=== PATIENT | female | born 1925 | race Caucasian/White ===

== ENCOUNTER → 2016-08-29 | Outpatient (CLI) | payer MEDICARE, OTHER ==
[~2016-08-29] MED LIST: ASPI-983 PO; CLOP75TA28 PO; GLUC1TAB20 PO; LEVO125T6 PO; LOSA100T28 PO; MELO15TA39 PO; METF1000 PO; METO-333 PO; POLY17PO6 PO; PRAV40TA2 PO; SPIR25TA3 PO; SULF1TAB35 PO
--- NOTE | 2016-08-29 17:41 | ECHOCARDIOGRAPHY REPORT ---
DATE OF SERVICE: 08/29/2016 REFERRING PHYSICIAN: Camila Amaya MD MEASUREMENT: LVID end diastolic 4.6, IVS thickness 1.0, LVPW thickness 1.0, left atrial diameter, 2.6 ejection fraction 40%. FINDINGS: 1. Technical quality is good. 2. The left ventricle is normal in size with mild left ventricular hypertrophy, mild to moderate hypokinesia involving the anterior wall and anterior septum. Overall, systolic function is improved compared to the study of 10/2015. Estimated ejection fraction 35% to 40%. 3. The left atrium is normal in size. No clot or thrombus were seen within the left atrium. 4. The right atrium and right ventricle are normal in size. No clot or thrombus were seen within the right side. 5. Mitral valve is heavily calcified with mild mitral regurgitation noted by color Doppler flow. Mitral valve area by pressure halftime was calculated to 2.4 square cm, which is mild mitral valve stenosis. 6. Aortic valve is calcified. Doppler across the aortic valve estimated the peak gradient of 10 mmHg, calculated valve area of 2.3 square cm, which is mild aortic valve stenosis, no significant aortic regurgitation was seen. 7. Tricuspid valve is normal in morphology with mild tricuspid regurgitation noted by color Doppler flow. Doppler across the tricuspid valve estimated pulmonary artery pressure of 18+ right atrial pressure. 8. Pulmonic valve is functioning normally. 9. No pericardial effusion. CONCLUSION: 1. Mild left ventricular hypertrophy with mild hypokinesia at the anterior wall and anterior septum, improvement compared to the study of 2015 with estimated ejection fraction 35% to 40%. Diastolic dysfunction is suggested by Doppler. 2. Calcified mitral valve with mild mitral stenosis. 3. Mild aortic valve stenosis. 4. Mild tricuspid regurgitation. 5. Estimated pulmonary artery pressure of 25 mmHg. Job ID: [id number] DocumentID: [id number] Dictated Date: 08/29/2016 15:45:12 Athletics Teacher Date: 08/29/2016 16:49:19 Dictated By: TIO PERSAUD MD
== END ==
LOC: CARD 09:59
PROVIDERS: ATTEND Internal Medicine Cardiovascular Disease
DX: I25.10 Atherosclerotic heart disease of native coronary artery without angina pectoris (principal); I65.23 Occlusion and stenosis of bilateral carotid arteries; I10 Essential (primary) hypertension; R06.02 Shortness of breath; I08.3 Combined rheumatic disorders of mitral, aortic and tricuspid valves
CPT/HCPCS: 93306

== ENCOUNTER 2016-09-08 05:57 | Emergency (ER) | payer MEDICARE, OTHER ==
[~2016-09-08] VITALS: Ht 160 cm; Wt 77.1 kg
--- NOTE | 2016-09-08 06:37 | ED Lower Extremity ---
General Chief Complaint: Lower Extremity Stated Complaint: L ANKLE INJ Nursing Triage Note: PT STATES SHE TWISTED HER L ANKLE IN HER YARD ON Thursday, STATES SHE HAS BEEN TAKING ALIEVE SINCE THEN BUT THE PAIN IS VERY SEVERE THIS MORNING. Nursing Sepsis Screen: No Definite Risk Source: patient Exam Limitations: no limitations History of Present Illness Time seen by provider: 06:12 Initial Comments Here with complaint of left ankle pain since Thursday. Reports rolling her ankle while walking thru her front yard and stepping on a gum tree ball. Has been taking alleve and had some improvement of pain, but much worse this morning. Did not fall. Pain to mid foot and ankle laterally. Onset: other (2 days ago) Severity: moderate Pain/Injury Location: left ankle Method of Injury: twisted Modifying Factors: Improves With Immobilization, Worse With Movement, Improves With Pain Medication Allergies and Home Medications Allergies Coded Allergies: NKANo Known Allergies (Unverified Allergy, Mild, 07/04/09) Home Medications Aspirin 81 Mg Tablet.dr, 81 MG PO DAILY, #100 Ref 4 Prescribed by: TIO PERSAUD on 07/26/15 0716 Clopidogrel Bisulfate 75 Mg Tablet, 75 MG PO DAILY, #30 Ref 6 Prescribed by: TIO PERSAUD on 07/26/15 0716 Gluc Gay/Chondro Gay A/Vit C/Mn 1 Each Tablet, 1 TAB PO BID, (Reported) Levothyroxine Sodium 125 Mcg Tablet, 125 MCG PO DAILY, (Reported) Losartan Potassium 100 Mg Tablet, 100 MG PO DAILY, (Reported) Metoprolol Tartrate 25 Mg Tablet, 25 MG PO BID, (Reported) Polyethylene Glycol 3350 17 Gm Powd.pack, 17 GM PO DAILY, (Reported) Pravastatin Sodium 40 Mg Tablet, 40 MG PO HS, (Reported) Spironolactone 25 Mg Tablet, 25 MG PO DAILY, (Reported) Constitutional: see HPI, No chills, No fever Respiratory: no symptoms reported Cardiovascular: no symptoms reported Musculoskeletal: see HPI, joint pain, joint swelling, muscle pain Skin: see HPI, change in color, No lesions Psychiatric/Neurological: No Symptoms Reported Past Pmfvdyd-Xcjrnl-Koiyip Hx Patient Social History Alcohol Use: Denies Use Recreational Drug Use: No Smoking Status: Never a Smoker Recent Foreign Travel: No Contact w/Someone Who Travel: No Recent Infectious Disease Expo: No Recent Hopitalizations: No Immunizations Up To Date Date of Pneumonia Vaccine: July 24, 2013 Seasonal Allergies Seasonal Allergies: No Respiratory Hx Respiratory Disorders: No Cardiovascular Cardiac Disorders: Coronary Artery Disease, Hypertension Genitourinary Hx Genitourinary Disorders: No Cancer Cancer: Colon Reviewed Nursing Assessment Reviewed/Agree w Nursing PMH: Yes Physical Exam Vital Signs Vital Sign - Last 12Hours 09/08/16 06:08 Temp 97.2 Pulse 58 Resp 18 B/P (MAP) 163/92 Capillary Refill : Less Than 3 Seconds General Appearance: WD/WN, no apparent distress Cardiovascular: regular rate, rhythm, no murmur Respiratory: lungs clear, normal breath sounds Ankles: right ankle non-tender, right ankle normal inspection, right ankle normal range of motion, left ankle joint effusion, left ankle limited range of motion, left ankle pain, left ankle soft tissue tenderness, left ankle swelling (All findings to lateral aspect) Feet: left foot ecchymosis, left foot limited range of motion, left foot pain, left foot soft tissue tenderness, left foot swelling, left foot other (All findings to lateral aspect from ankle to toes. Eccymosis noted greatest at ankle and toes.) Neurologic/Tendon: normal sensation, normal motor functions, normal tendon functions Neurologic/Psychiatric: alert, oriented x 3 Skin: warm/dry, ecchymosis Progress/Results/Core Measures Results/Orders My Orders Orders - ROJAS STORM MD Foot, Left, 3 Views (09/08/16 06:21) Ankle, Left, 3 Views (09/08/16 06:21) Hydrocodone/Apap 5/325 Tablet (Lortab 5 (09/08/16 06:56) Vital Signs/I&O Vital Sign - Last 12Hours 09/08/16 06:08 Temp 97.2 Pulse 58 Resp 18 B/P (MAP) 163/92 Blood Pressure Mean: 115 Progress Note : Progress Note Seen and evaluated. Xray left ankle and foot. Declined pain meds currently. Hydrocodone 5/325 mg po. 0754: improved. No acute fracture. Edgar wrap and gel splint. DC home with return precautions. Patient and family verbalized understanding of instructions and agreement with plan. Diagnostic Imaging Diagonstic Imaging: Xray Plain Films/CT/US/NM/MRI: ankle, other (left foot) Comments Moderate degeneration but no acute fracture. Reviewed: Reviewed by Me Departure Impression Impression: Primary Impression: Ankle sprain Qualified Codes: S93.401A - Sprain of unspecified ligament of right ankle, initial encounter Disposition: 01 HOME, SELF-CARE Condition: Improved Departure-Patient Inst. Decision time for Depature: 08:03 Referrals: VEGA BENNETT MD (PCP/Family) Primary Care Physician Patient Instructions: Ankle Sprain (DC) Add. Discharge Instructions: All discharge instructions reviewed with patient and/or family. Voiced understanding. Take medications as directed. Follow up with your doctor this week for recheck and further evaluation as needed. Use Edgar wrap and gel splint as needed over the next few days for comfort. Elevate the foot as often as possible to decrease swelling. You may use ice packs 20 minutes per hour to area of concern as needed for swelling or pain. Return for worse pain, fever, vomiting , weakness, breathing problems or other concerns as needed. ROJAS STORM MD Sep 08, 2016 06:37
[2016-09-08] MEDS ORDERED: HYDROcodone/APAP 5 MG/325 MG (LORTAB) TAB PO STA (06:56)
--- NOTE | 2016-09-08 08:09 | Diagnostic Imaging Report ---
Indication: Left foot pain AP, oblique, and lateral views of the left foot are obtained. There is osteopenia. There is plantar and posterior calcaneal spurring. There is no acute fracture or acute bony abnormality. IMPRESSION: Chronic changes as above but no acute bony abnormality. Dictated by: Dictated on workstation # [id number]
--- NOTE | 2016-09-08 08:11 | Diagnostic Imaging Report ---
INDICATION: Left ankle pain AP, oblique, and lateral views of the left ankle are obtained. There is plantar and posterior calcaneal spurring. There is no acute fracture or acute bony abnormality. IMPRESSION: No acute abnormality left ankle. Dictated by: Dictated on workstation # [id number]
[2016-09-08 08:14] VITALS: BP 126/83
== END 2016-09-08 08:14 | disposition home or self-care (01) ==
LOC: EDUNIT# 05:57 → ER 06:00
DX: S93.402A Sprain of unspecified ligament of left ankle, initial encounter (principal); I25.10 Atherosclerotic heart disease of native coronary artery without angina pectoris; I10 Essential (primary) hypertension; Z85.038 Personal history of other malignant neoplasm of large intestine; Z79.82 Long term (current) use of aspirin; X50.0XXA Overexertion from strenuous movement or load, initial encounter; Y92.096 Garden or yard of other non-institutional residence as the place of occurrence of the external cause; Y93.01 Activity, walking, marching and hiking
CPT/HCPCS: 73610; 73630; 99283

== ENCOUNTER 2017-07-25 18:25 | Emergency (ER) | payer MEDICARE, OTHER ==
[~2017-07-25] VITALS: Ht 154.9 cm; Wt 80.3 kg
[~2017-07-25 18:25] MED LIST changes: -HYDR25SU28 RC; -HYDR30CR RC; -LIDOCAINE 4% INJ (XYLOCAINE) 5ML AMP ONE; -LIDOCAINE TOPICAL 4% 50 ML BTL TP ONE
--- OUTSIDE RECORDS SUMMARY | 2017-07-25 18:30 | XMS REPORT | Continuity of Care Document ---
Author Author [facility] Organization [facility] Address Unknown Phone Unavailable Allergies Active Description Code Type Severity Reaction Onset Reported/Identified Relationship to Patient Clinical Status Yes NKANo Known Allergies NKA Miscellaneous Allergy Mild N/A 07/04/2009 Medications There is no data. Problems Date Dx Coded Attending Type Code Diagnosis Diagnosed By 07/05/2015 Ot 331.9 07/05/2015 Ot 401.9 07/05/2015 Ot 433.10 07/05/2015 TIO PERSAUD MD, Ot I10 07/05/2015 TIO PERSAUD MD Ot I65.23 07/05/2015 TIO PERSAUD MD Ot M79.604 07/05/2015 TIO PERSAUD MD Ot R60.9 07/18/2015 TIO PERSAUD MD Ot I10 ESSENTIAL (PRIMARY) HYPERTENSION 07/18/2015 TIO PERSAUD MD Ot I65.23 OCCLUSION AND STENOSIS OF BILATERAL [place] 07/18/2015 TIO PERSAUD MD Ot M79.604 PAIN IN RIGHT LEG 07/18/2015 TIO PERSAUD MD Ot R60.9 EDEMA, UNSPECIFIED 07/25/2015 TIO PERSAUD MD Ot I10 ESSENTIAL (PRIMARY) HYPERTENSION 07/25/2015 TIO PERSAUD MD Ot I65.23 OCCLUSION AND STENOSIS OF BILATERAL [place] 07/25/2015 TIO PERSAUD MD Ot R06.02 SHORTNESS OF BREATH 07/25/2015 ITO PERSAUD MD Ot R06.09 OTHER FORMS OF DYSPNEA 07/25/2015 TIO PERSAUD MD Ot R60.9 EDEMA, UNSPECIFIED 07/25/2015 TIO PERSAUD MD Ot I10 ESSENTIAL (PRIMARY) HYPERTENSION 07/25/2015 TIO PERSAUD MD Ot I65.23 OCCLUSION AND STENOSIS OF BILATERAL [place] 07/25/2015 TIO PERSAUD MD Ot M79.604 PAIN IN RIGHT LEG 07/25/2015 TIO PERSAUD MD Ot R60.9 EDEMA, UNSPECIFIED 07/26/2015 TIO PERSAUD MD Ot E03.9 HYPOTHYROIDISM, UNSPECIFIED 07/26/2015 TIO PERSAUD MD Ot E11.9 TYPE 2 DIABETES MELLITUS WITHOUT COMPLIC 07/26/2015 TIO PERSAUD MD Ot E78.5 HYPERLIPIDEMIA, UNSPECIFIED 07/26/2015 TIO PERSAUD MD Ot I10 ESSENTIAL (PRIMARY) HYPERTENSION 07/26/2015 TIO PERSAUD MD Ot I25.10 ATHSCL HEART DISEASE OF [place] CORONARY 07/26/2015 TIO PERSAUD MD Ot I34.0 NONRHEUMATIC MITRAL (VALVE) INSUFFICIENC 07/26/2015 TIO PERSAUD MD Ot I44.7 LEFT BUNDLE-BRANCH BLOCK, UNSPECIFIED 07/26/2015 TIO PERSAUD MD Ot I50.22 CHRONIC SYSTOLIC (CONGESTIVE) HEART FAIL 07/26/2015 TIO PERSAUD MD Ot R07.9 CHEST PAIN, UNSPECIFIED 07/26/2015 TIO PERSAUD MD Ot R94.39 ABNORMAL RESULT OF OTHER CARDIOVASCULAR 07/26/2015 TIO PERSAUD MD Ot Z79.899 OTHER GROUP HOME (CURRENT) DRUG THERAPY 08/08/2015 TIO PERSAUD MD, Ot I10 ESSENTIAL (PRIMARY) HYPERTENSION 08/08/2015 TIO PERSAUD MD Ot I65.23 OCCLUSION AND STENOSIS OF BILATERAL [place] 08/08/2015 TIO PERSAUD MD Ot R06.02 SHORTNESS OF BREATH 08/08/2015 TIO PERSAUD MD Ot R06.09 OTHER FORMS OF DYSPNEA 08/08/2015 TIO PERSAUD MD Ot R60.9 EDEMA, UNSPECIFIED 08/13/2015 TIO PERSAUD MD Ot E03.9 HYPOTHYROIDISM, UNSPECIFIED 08/13/2015 TIO PERSAUD MD Ot E11.9 TYPE 2 DIABETES MELLITUS WITHOUT COMPLIC 08/13/2015 TIO PERSAUD MD Ot E78.5 HYPERLIPIDEMIA, UNSPECIFIED 08/13/2015 TIO PERSAUD MD Ot I10 ESSENTIAL (PRIMARY) HYPERTENSION 08/13/2015 TIO PERSAUD MD Ot I25.10 ATHSCL HEART DISEASE OF [place] CORONARY 08/13/2015 TIO PERSAUD MD Ot I34.0 NONRHEUMATIC MITRAL (VALVE) INSUFFICIENC 08/13/2015 TIO PERSAUD MD Ot I44.7 LEFT BUNDLE-BRANCH BLOCK, UNSPECIFIED 08/13/2015 TIO PERSAUD MD Ot I50.22 CHRONIC SYSTOLIC (CONGESTIVE) HEART FAIL 08/13/2015 TIO PERSAUD MD Ot R07.9 CHEST PAIN, UNSPECIFIED 08/13/2015 TIO PERSAUD MD Ot R94.39 ABNORMAL RESULT OF OTHER CARDIOVASCULAR 08/13/2015 TIO PERSAUD MD Ot Z79.899 OTHER GROUP HOME (CURRENT) DRUG THERAPY 10/22/2015 TIO PERSAUD MD Ot I65.23 OCCLUSION AND STENOSIS OF BILATERAL [place] 10/22/2015 TIO PERSAUD MD Ot I10 ESSENTIAL (PRIMARY) HYPERTENSION 10/22/2015 TIO PERSAUD MD Ot I65.23 OCCLUSION AND STENOSIS OF BILATERAL [place] 10/22/2015 TIO PERSAUD MD Ot R06.02 SHORTNESS OF BREATH 10/22/2015 TIO PERSAUD MD Ot R60.9 EDEMA, UNSPECIFIED 11/09/2015 TIO PERSAUD MD Ot I10 ESSENTIAL (PRIMARY) HYPERTENSION 11/09/2015 TIO PERSAUD MD Ot I65.23 OCCLUSION AND STENOSIS OF [place]ILATERAL [place] 11/09/2015 TIO PERSAUD MD Ot R06.02 SHORTNESS OF BREATH 11/09/2015 TIO PERSAUD MD Ot R60.9 EDEMA, UNSPECIFIED 09/08/2016 Ot 331.9 CEREB DEGENERATION NOS 09/08/2016 Ot 401.9 HYPERTENSION NOS 09/08/2016 Ot 433.10 CAROTID ARTERY OCCLUSION W O CEREBRAL IN 09/08/2016 TIO PERSAUD MD Ot I10 ESSENTIAL (PRIMARY) HYPERTENSION 09/08/2016 TIO PERSAUD MD Ot I65.23 OCCLUSION AND STENOSIS OF [place]ILATERAL [place] 09/08/2016 TIO PERSAUD MD Ot R06.02 SHORTNESS OF BREATH 09/08/2016 TIO PERSAUD MD Ot R06.09 OTHER FORMS OF DYSPNEA 09/08/2016 TIO PERSAUD MD Ot R60.9 EDEMA, UNSPECIFIED 09/08/2016 TIO PERSAUD MD Ot I10 ESSENTIAL (PRIMARY) HYPERTENSION 09/08/2016 TIO PERSAUD MD Ot I65.23 OCCLUSION AND STENOSIS OF [place]IL[place]AL [place] 09/08/2016 TIO PERSAUD MD Ot M79.604 PAIN IN RIGHT LEG 09/08/2016 TIO PERSAUD MD Ot R60.9 EDEMA, UNSPECIFIED 09/08/2016 TIO PERSAUD MD, Ot I10 ESSENTIAL (PRIMARY) HYPERTENSION 09/08/2016 TIO PERSAUD MD Ot I65.23 OCCLUSION AND STENOSIS OF [place]AL [place] 09/08/2016 TIO PERSAUD MD Ot R06.02 SHORTNESS OF BREATH 09/08/2016 TIO PERSAUD MD Ot R60.9 EDEMA, UNSPECIFIED 09/08/2016 TIO PERSAUD MD Ot 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[place], AORTIC 09/08/2016 TIO PERSAUD MD, Ot I10 ESSENTIAL (PRIMARY) HYPERTENSION 09/08/2016 TIO PERSAUD MD Ot I25.10 ATHSCL HEART DISEASE OF [place] CORONARY 09/08/2016 TIO PERSAUD MD Ot I65.23 OCCLUSION AND STENOSIS OF [place]AL [place] 09/08/2016 TIO PERSAUD MD Ot R06.02 SHORTNESS OF BREATH 09/08/2016 ROJAS STORM MD, Ot I10 ESSENTIAL (PRIMARY) HYPERTENSION 09/08/2016 ROJAS STORM MD, Ot I25.10 ATHSCL HEART DISEASE OF [place] CORONARY 09/08/2016 ROJAS STORM MD Ot M25.572 PAIN IN LEFT ANKLE AND JOINTS OF LEFT FO 09/08/2016 ROJAS STORM MD Ot S93.402A SPRAIN OF UNSPECIFIED LIGAMENT OF LEFT A 09/08/2016 ROJAS STORM MD Ot X50.0XXA OVEREXERTION FROM STRENUOUS MOVEMENT OR 09/08/2016 ROJAS STORM MD Ot Y92.096 GARDEN OR YARD OF NON-INSTITUTIONAL RESI 09/08/2016 ROJAS STORM MD, Ot Y93.01 ACTIVITY, WALKING, MARCHING AND HIKING 09/08/2016 ROJAS STORM MD Ot Z79.82 GRAPHICS SPECIALIST (CURRENT) USE OF ASPIRIN 09/08/2016 ROJAS STORM MD Ot Z85.038 PERSONAL HISTORY OF MALIGNANT NEOPLASM O 09/09/2016 TIO PERSAUD MD Ot I10 ESSENTIAL (PRIMARY) HYPERTENSION 09/09/2016 TIO PERSAUD MD Ot I65.23 OCCLUSION AND STENOSIS OF [place]AL [place] 09/09/2016 TIO PERSAUD MD Ot R06.02 SHORTNESS OF BREATH 09/09/2016 TIO PERSAUD MD Ot R06.09 OTHER FORMS OF DYSPNEA 09/09/2016 TIO PERSAUD MD Ot R60.9 EDEMA, UNSPECIFIED 09/09/2016 TIO PERSAUD MD Ot I10 ESSENTIAL (PRIMARY) HYPERTENSION 09/09/2016 TIO PERSAUD MD Ot I65.23 OCCLUSION AND STENOSIS OF [place]AL [place] 09/09/2016 TIO PERSAUD MD Ot M79.604 PAIN IN RIGHT LEG 09/09/2016 TIO PERSAUD MD Ot R60.9 EDEMA, UNSPECIFIED 09/09/2016 TIO PERSAUD MD Ot I10 ESSENTIAL (PRIMARY) HYPERTENSION 09/09/2016 TIO PERSAUD MD Ot I65.23 OCCLUSION AND STENOSIS OF [place]AL [place] 09/09/2016 TIO PERSAUD MD Ot R06.02 SHORTNESS OF BREATH 09/09/2016 TIO PERSAUD MD Ot R60.9 EDEMA, UNSPECIFIED 09/09/2016 TIO PERSAUD MD Ot 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[place], AORTIC 09/09/2016 TIO PERSAUD MD Ot I10 ESSENTIAL (PRIMARY) HYPERTENSION 09/09/2016 TIO PERSAUD MD Ot I25.10 ATHSCL HEART DISEASE OF [place] CORONARY 09/09/2016 TIO PERSAUD MD Ot I65.23 OCCLUSION AND STENOSIS OF [place]AL [place] 09/09/2016 TIO PERSAUD MD Ot R06.02 SHORTNESS OF BREATH 09/09/2016 Ot 331.9 CEREB DEGENERATION NOS 09/09/2016 Ot 401.9 HYPERTENSION NOS 09/09/2016 Ot 433.10 CAROTID ARTERY OCCLUSION W O CEREBRAL IN 09/09/2016 TIO PERSAUD MD Ot I10 ESSENTIAL (PRIMARY) HYPERTENSION 09/09/2016 TIO PERSAUD MD Ot I65.23 OCCLUSION AND STENOSIS OF BILATERAL [place] 09/09/2016 TIO PERSAUD MD Ot R06.02 SHORTNESS OF BREATH 09/09/2016 TIO PERSAUD MD Ot R06.09 OTHER FORMS OF DYSPNEA 09/09/2016 TIO PERSAUD MD Ot R60.9 EDEMA, UNSPECIFIED 09/09/2016 TIO PERSAUD MD Ot I10 ESSENTIAL (PRIMARY) HYPERTENSION 09/09/2016 TIO PERSAUD MD Ot I65.23 OCCLUSION AND STENOSIS OF [place]IL[place]AL [place] 09/09/2016 TIO PERSAUD MD Ot M79.604 PAIN IN RIGHT LEG 09/09/2016 TIO PERSAUD MD Ot R60.9 EDEMA, UNSPECIFIED 09/09/2016 TIO PERSAUD MD Ot I10 ESSENTIAL (PRIMARY) HYPERTENSION 09/09/2016 TIO PERSAUD MD Ot I65.23 OCCLUSION AND STENOSIS OF [place]AL [place] 09/09/2016 TIO PERSAUD MD Ot R06.02 SHORTNESS OF BREATH 09/09/2016 TIO PERSAUD MD Ot R60.9 EDEMA, UNSPECIFIED 09/09/2016 TIO PERSAUD MD Ot 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[place], AORTIC 09/09/2016 TIO PERSAUD MD Ot I10 ESSENTIAL (PRIMARY) HYPERTENSION 09/09/2016 TIO PERSAUD MD Ot I25.10 ATHSCL HEART DISEASE OF [place] CORONARY 09/09/2016 TIO PERSAUD MD Ot I65.23 OCCLUSION AND STENOSIS OF [place]AL [place] 09/09/2016 TIO PERSAUD MD Ot R06.02 SHORTNESS OF BREATH 09/10/2016 ROJAS STORM MD Ot I10 ESSENTIAL (PRIMARY) HYPERTENSION 09/10/2016 ROJAS STORM MD Ot I25.10 ATHSCL HEART DISEASE OF [place] CORONARY 09/10/2016 ROJAS STORM MD Ot M25.572 PAIN IN LEFT ANKLE AND JOINTS OF LEFT FO 09/10/2016 ROJAS STORM MD Ot S93.402A SPRAIN OF UNSPECIFIED LIGAMENT OF LEFT A 09/10/2016 ROJAS STORM MD Ot X50.0XXA OVEREXERTION FROM STRENUOUS MOVEMENT OR 09/10/2016 ROJAS STORM MD Ot Y92.096 GARD[place] OR YARD OF NON-INSTITUTIONAL RESI 09/10/2016 ROJAS STORM MD Ot Y93.01 ACTIVITY, WALKING, MARCHING AND HIKING 09/10/2016 ROJAS STORM MD Ot Z79.82 GRAPHICS SPECIALIST (CURRENT) USE OF ASPIRIN 09/10/2016 ROJAS STORM MD Ot Z85.038 PERSONAL HISTORY OF MALIGNANT NEOPLASM O 09/19/2016 TIO PERSAUD MD Ot 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AL, AORTIC 09/19/2016 TIO PERSAUD MD Ot I10 ESSENTIAL (PRIMARY) HYPERTENSION 09/19/2016 TIO PERSAUD MD Ot I25.10 ATHSCL HEART DISEASE OF [place] CORONARY 09/19/2016 TIO PERSAUD MD Ot I65.23 OCCLUSION AND STENOSIS OF BILATERAL [place] 09/19/2016 TIO PERSAUD MD Ot R06.02 SHORTNESS OF BREATH Procedures There is no data. Results There is no data. Encounters ACCT No. Visit Date/Time Discharge Status Pt. Type Provider Facility Loc./Unit Complaint [id number] 09/08/2016 06:00:00 09/08/2016 08:14:00 DIS Emergency ROJAS STORM MD [facility] ER L ANKLE INJ [id number] 08/29/2016 09:59:00 08/29/2016 23:59:59 CLS Outpatient TIO PERSAUD MD [facility] CARD I25.10 CAD [id number] 04/29/2016 08:49:00 04/29/2016 23:59:59 CLS Preadmit VEGA BENNETT MD [facility] REHAB GAIT INSTABILITY AND DECREASED STAMINA [id number] 10/19/2015 09:48:00 10/19/2015 23:59:59 CLS Outpatient TIO PERSAUD MD [facility] CARD HIRAM,HTN,PERIPHERAL EDEMA [id number] 07/25/2015 10:59:00 07/26/2015 10:00:00 DIS Outpatient TIO PERSAUD MD [facility] CATH ABNORMAL STRESS, SOB HTN HLP DM [id number] 07/18/2015 09:52:00 07/18/2015 23:59:59 CLS Outpatient TIO PERSAUD MD [facility] CARD DYSPNEA,HTN,EDEMA, CAROTID ARTERY STENOSIS [id number] 07/05/2015 08:08:00 07/05/2015 23:59:59 CLS Outpatient CORI BURT, TIO Luna [facility] RAD CAROTID ARTERY STENOSIS [id number] 07/25/2017 18:26:00 ACT Emergency ANAHI ROBLES DO [facility] ER RECTAL PAIN [id number] 08/07/2011 09:37:00 Document Registration [id number] 12/16/2016 11:07:17 12/16/2016 23:59:59 CLS Outpatient
[2017-07-25] MEDS ORDERED: LIDOCAINE 2% VISCOUS 15 ML UDC MM ONE (19:45)
--- NOTE | 2017-07-25 20:22 | Diagnostic Imaging Report ---
INDICATION: Rectal pain FINDINGS: The lungs are clear although air trapping chronic present. No failure, effusion or pneumothorax. Some elevated colonic fecal load. Stool at the level of the rectal vault results in mild distention of 7.5 cm transverse. IMPRESSION: Colonic constipation, mild rectal impaction not excluded. No air-containing dilated small bowel to suggest renee obstruction. Chest is nonacute. Dictated by: Dictated on workstation # [id number]
--- NOTE | 2017-07-25 20:33 | Diagnostic Imaging Report ---
PROCEDURE: CT abdomen and pelvis without contrast. TECHNIQUE: Multiple contiguous axial images were obtained through the abdomen and pelvis without the use of intravenous contrast. INDICATION: Perirectal pain. FINDINGS: There is pancolonic constipation. Some moderately elevated fecal load to the level of the mildly distended rectal vault, measuring 7.1 cm transverse. No perirectal fluid collection. The wall, itself, is not grossly over thickened. No small bowel dilatation. There is a midline supraumbilical ventral abdominal wall hernia comprised of a segment of unobstructed mid transverse colon. At the level of the umbilicus there is a left paramedian ventral abdominal wall hernia comprised of unobstructed small bowel. The lung bases clear. The gallbladder is absent. There is no pathological bile duct dilatation. The spleen and adrenals are negative. There is bilateral renal cortical cysts without hydronephrosis. There is aortic atherosclerotic disease with mild infrarenal aortic ectasia, measuring 2.8 cm. No renee aneurysm. There is no ascites, abscess, hematoma or fluid collection. No pneumatosis or free gas. IMPRESSION: 1. Pancolonic constipation with suggestion of mild rectal impaction. No small bowel dilatation. 2. Ventral abdominal wall hernias, nonobstructing, as described. 3. Benign renal cysts with no hydronephrosis. Atherosclerotic disease is chronic. Dictated by: Dictated on workstation # [id number]
--- NOTE | 2017-07-25 20:46 | ED GI ---
General Chief Complaint: Rect Problems Stated Complaint: RECTAL PAIN Nursing Triage Note: PATIENT STATES THAT SHE HAS BEEN HAVING RECTAL PAIN FOR 30 YEARS AND "NO ONE WANTS TO DO ANYTHING ABOUT IT." HER COMPLAINT TODAY IS THAT SHE HASNT HAD A "GOOD ENOUGH BOWEL MOVEMENT" FOR AN UNKNOWN NUMBER OF DAYS. SHE WAS PREVIOUSLY ON DAILY LAXATIVES, THEN PRUNE JUICE, THEN THAT WAS DISCONTINUED. SHE WAS TAKING ANTIBIOTICS ORDERED BY HER DENTIST AND SHE BELIEVES THIS ANTIBIOTIC HAS CAUSED HER PROBLEMS TO RETURN. Sepsis Screen: No Definite Risk Source of Information: Patient Exam Limitations: No Limitations History of Present Illness Date Seen by Provider: July 25, 2017 Time Seen by Provider: 19:00 Initial Comments C/O RECTAL PAIN X 1 WEEK. STATES IT HURTS TO SIT C/O CONSTIPATION--HAS NOT HAD A BM IN A COUPLE OF DAYS. PT HAS CHRONIC CONSTIPATION, AND HAD BEEN ON DAILY LAXATIVES FOR YEARS, BUT IT WAS STOPPED OVER A WEEK AGO AND WAS TOLD TO EAT PRUNES INSTEAD--PT REPORTS THAT STOOLS WERE ALWAYS LIQUID, AND SO WAS TOLD TO STOP PT STATES SHE HAS A STRONG URGE TO HAVE A BM BUT CAN'T GO, BECAUSE IT HURTS TOO MUCH. 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 NO CHEMO OR RADIATION. PT AND SON STATE THAT PT HAD ONE COLONOSCOPY A YEAR AFTER THE SURGERY BUT HAS NOT HAD ONE SINCE. WAS NOT FOLLOWED BY ONCOLOGY. NO RECTAL BLEEDING NO ABDOMINAL PAIN OR NAUSEA/VOMITING NO FEVER PT GIVES CONFLICING INFORMATION--SHE STATES SHE HAS BEEN TO DENTIST AND WAS STARTED ON AN ANTIBIOTIC FOR A PROBLEM WITH A TOOTH, AND ON THURSDAY SHE STARTED HAVING ALOT OF DIARRHEA, AND THEN RECTAL PAIN BEGAN PCP: DR. BENNETT--HAD ROUTINE APPOINTMENT THIS PAST WEEK, AND SAW [employer], AND WAS GIVEN RX FOR HYDROCORTISONE RECTAL CREAM --PT STATES IS NOT HELPING. NO RECTAL EXAM DONE PER PT Allergies and Home Medications Allergies Coded Allergies: NKANo Known Allergies (Unverified Allergy, Mild, 07/04/09) Home Medications Aspirin 81 Mg Tablet., 81 MG PO DAILY Prescribed by: TIO PERSAUD on 07/26/15 0716 Clopidogrel Bisulfate 75 Mg Tablet, 75 MG PO DAILY Prescribed by: TIO PERSAUD on 07/26/15715 Gluc Gay/Chondro Gay A/Vit C/Mn 1 Each Tablet, 1 TAB PO BID, (Reported) Hydrocortisone Acetate 25 Mg Supp.rect, 25 MG RC TID Prescribed by: ANAHI ROBLES on 07/25/172048 Hydrocortisone/Pramoxine 30 Gm Cream.appl, 30 GM RC QID Prescribed by: ANAHI ROBLES on 07/25/172048 Levothyroxine Sodium 125 Mcg Tablet, 125 MCG PO DAILY, (Reported) Losartan Potassium 100 Mg Tablet, 100 MG PO DAILY, (Reported) Metoprolol Tartrate 25 Mg Tablet, 25 MG PO BID, (Reported) Polyethylene Glycol 3350 17 Gm Powd.pack, 17 GM PO DAILY, (Reported) Pravastatin Sodium 40 Mg Tablet, 40 MG PO HS, (Reported) Spironolactone 25 Mg Tablet, 25 MG PO DAILY, (Reported) Patient Home Medication List Home Medication List Reviewed: Yes Review of Systems Constitutional: no symptoms reported Gastrointestinal: See HPI; Denies Abdominal Pain; Constipated; Denies Diarrhea , Denies Nausea, Denies Rectal Bleeding, Denies Vomiting Genitourinary: No Symptoms Reported Musculoskeletal: no symptoms reported Past Hryxvic-Nryeod-Rgjrvr Hx Patient Social History Alcohol Use: Denies Use Recreational Drug Use: No Smoking Status: Never a Smoker 2nd Hand Smoke Exposure: No Recent Foreign Travel: No Contact w/Someone Who Travel: No Recent Infectious Disease Expo: No Recent Hopitalizations: No Physical Abuse: No Sexual Abuse: No Immunizations Up To Date Date of Pneumonia Vaccine: July 24, 2013 Seasonal Allergies Seasonal Allergies: No Past Medical History Surgeries: Yes Respiratory: No Cardiac: Yes Coronary Artery Disease, Hypertension Neurological: No Genitourinary: No Gastrointestinal: No Musculoskeletal: No Endocrine: No HEENT: No Cancer: No Colon Psychosocial: No Nursing Suicide Risk Score: 0 Integumentary: No Physical Exam Vital Signs Capillary Refill : Less Than 3 Seconds General Appearance: WD/WN, no apparent distress, other (ANXIOUS) Respiratory: normal breath sounds, no respiratory distress, no accessory muscle use Cardiovascular: regular rate, rhythm, no murmur Gastrointestinal: normal bowel sounds, non tender, soft Rectal: tenderness, other (MILD EXTERNAL HEMORRHOIDS, NO THROMBOSIS. 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 NO OBSTRUCTION--PER RADIOLOGIST REPORT @ 2026 CT ABDOMEN/PELVIS--PANCOLONIC CONSTIPATION WITH RECTAL FECAL IMPACTION, NO OBSTRUCTION. SUPRAUMBILICAL HERNIA. PER RADIOLOGIST REPORT @ 2034 Reviewed: Reviewed by Me Departure Impression Primary Impression: CONSTIPATION Additional Impression: Fecal impaction in rectum Disposition: HOME, SELF-CARE Condition: Stable Departure-Patient Inst. Referrals: VEGA BENNETT MD (PCP/Family) Primary Care Physician Patient Instructions: Constipation, Adult (DC), Fecal Impaction (DC) Add. Discharge Instructions: TAKE MIRALAX DAILY FOR CONSTIPATION USE HYDROCORTISONE RECTAL CREAM TO EXTERNAL RECTAL AREA FOR PAIN AND INFLAMMATION FOLLOW UP WITH DR. BENNETT NEXT WEEK FOR RECHECK All discharge instructions reviewed with patient and/or family. Voiced understanding. Scripts Hydrocortisone/Pramoxine (Pramcort 1% Cream) 30 Gm Cream.appl 30 GM RC QID, #1 APPLIC Prov: ANAHI ROBLES DO 07/25/17 Hydrocortisone Acetate (Anusol-Hc) 25 Mg Supp.rect 25 MG RC TID, #14 SUPP.RECT Prov: ANAHI ROBLES DO 07/25/17 ANAIH ROBLES DO July 25, 2017 20:46
[2017-07-25] MEDS ORDERED: HYDR25SU28 RC (20:49)
[2017-07-25] MEDS ORDERED: HYDR30CR RC (20:49)
[2017-07-25 20:57] VITALS: BP 142/98
== END 2017-07-25 21:05 | disposition home or self-care (01) ==
LOC: EDUNIT# 18:25 → ER 18:26
DX: K59.00 Constipation, unspecified (principal); I25.10 Atherosclerotic heart disease of native coronary artery without angina pectoris; E78.00 Pure hypercholesterolemia, unspecified; Z85.038 Personal history of other malignant neoplasm of large intestine; Z79.82 Long term (current) use of aspirin
CPT/HCPCS: 74022; 74176

== ENCOUNTER → 2017-07-25 | Outpatient (CLI) | payer MEDICARE, OTHER ==
[~2017-07-25] VITALS: Ht 154.9 cm; Wt 76.8 kg
[~2017-07-25] MED LIST changes: +HYDR25SU28 RC; +HYDR30CR RC; +LIDOCAINE 4% INJ (XYLOCAINE) 5ML AMP ONE; +LIDOCAINE TOPICAL 4% 50 ML BTL TP ONE; -METF1000 PO; +METF10002 PO
[2017-07-25 22:36] VITALS: BP 140/83
[2017-07-26 02:35] VITALS: BP 140/83
--- NOTE | 2017-07-29 08:58 | Physician Query-Final Dx ---
DANIELITO GROVE 07/29/17 0858: Clinic Account Progress/Dx Physician Query: Please give diagnosis Date of Service July 25, 2017 at 21:13 Progress Note: Danielito [phone] ANAHI ROBLES DO 08/10/17 0404: Clinic Account Progress/Dx DIAGNOSIS: Diagnosis SEE CHART DANIELITO GROVE July 29, 2017 08:58 ANAHI ROBLES DO August 10, 2017 04:04
== END ==
LOC: SDC 21:13
PROVIDERS: ATTEND Emergency Medicine
DX: K56.41 Fecal impaction (principal)
CPT/HCPCS: 99212